=== PATIENT | male | born 1945 | race Caucasian/White ===

== ENCOUNTER 2020-03-21 13:12 | Outpatient (CLI) | payer MEDICARE, SELFPAY ==
--- NOTE | ~2020-03-21 | XR_ITS ---
EXAMINATION: XR sacroiliac jt inj w imag RT DATE: 03/21/2020 14:28 INDICATION: Right sacroiliac joint pain. TECHNIQUE: A time-out was performed to verify the patient's name, date of , and procedure to b e performed. The procedure including the risks, benefits, and alternatives was discussed with the pat ient. Risks discussed included bleeding and infection. The patient understood the risks and agreed to proceed. The skin overlying the right sacroiliac joint was prepped and draped in usual sterile fash ion. Anesthetic was administered with 1% lidocaine subcutaneously. A 22 G needle was advanced under fluoroscopic guidance into the joint. Injection of 0.8 mL of Omnipaque 240 confirmed intra-articula r position of the needle. Subsequently, injectate consisting of 5 mL of a 4:1 mixture of 1% lidocain e: 40 mg/mL Kenalog for a total dosage of 40 mg Kenalog was instilled. Washout of contrast was seen c onfirming intra-articular administration. The needle was removed and the entry site was cleaned and d ressed. There were no immediate complications. Fluoroscopy exposure time was 0.2 minutes. The total number of images was 2. FINDINGS: Real-time fluoroscopy demonstrates the needle in the right sacroiliac joint. Patient's pain prior to procedure:11/30. Patient's pain following the procedure: 10/02. IMPRESSION: 1. Right sacroiliac joint injection of local anesthetic and steroid with decrease in the patient's pr esenting pain. Reviewed, dictated and finalized at location A. IMPRESSION: 1. Right sacroiliac joint injection of local anesthetic and steroid with decrea se in the patient's presenting pain.
== END 2020-03-21 13:13 | disposition home or self-care (01) ==
PROVIDERS: Visit Provider Physician Assistant
DX: M53.3 Sacrococcygeal disorders, not elsewhere classified (principal)
CPT/HCPCS: 27096; G0260; J3301; Q9966